=== PATIENT | male | born 1990 | race Two or more races ===

== ENCOUNTER 2017-01-04 08:01 | Emergency (ER) | payer MEDICAID ==
[2017-01-04 08:04] VITALS: BMI 24.4
[2017-01-04 08:06] VITALS: BP 134/74; PULSE 94; RESP 18; TEMP 97.6; O2SAT 99
--- NOTE | 2017-01-04 08:18 | ED PDOC ---
HPI: Eye Injury/Pain Time Seen by Provider: 01/04/17 08:05 Chief Complaint (Nursing): Eye Problem Chief Complaint (Provider): right eye problem History Per: Patient History/Exam Limitations: no limitations Onset/Duration Of Symptoms: Days (x 1) Current Symptoms Are (Timing): Still Present Injury To Eye?: No Wears Contact Lens?: No Associated Symptoms: Itching, Discharge From Eye. denies: Pain, Decreased Vision, FB Sensation Additional Complaint(s): Davin Noguera is a 26 year old male, with no previous medical history, who presents to the ED with complaints of right eye redness associated with itchiness and yellow drainage since yesterday. Patient denies any foreign body sensation, changes in vision or trauma to the eye. PMD: none provided Past Medical History Reviewed: Historical Data, Nursing Documentation, Vital Signs Vital Signs: Last Vital Signs Temp 97.6 F 01/04/17 08:05 Pulse 94 H 01/04/17 08:05 Resp 18 01/04/17 08:05 BP 134/74 01/04/17 08:05 Pulse Ox 99 01/04/17 08:05 - Medical History PMH: No Chronic Diseases - Surgical History Surgical History: No Surg Hx - Family History Family History: States: Unknown Family Hx - Home Medications Home Medications: Ambulatory Orders Medication Instructions Recorded Tobramycin 0.3% [Tobramycin 5 Ml] 1 drop OP TID #1 bottle 01/04/17 Review of Systems ROS Statement: Except As Marked, All Systems Reviewed And Found Negative Eyes: Positive for: Conjunctivae Inflammation, Redness, Other (drainage ). Negative for: Vision Change Physical Exam - Reviewed Nursing Documentation Reviewed: Yes Vital Signs Reviewed: Yes - Physical Exam Appears: Positive for: Well, Non-toxic, No Acute Distress Eye Exam: Positive for: EOMI, PERRL, Conjunctival injection (right eye), Other ( right eye sclera erythematous. no drainage noted ). Negative for: Nystagmus, Periorbital swelling, Periorbital tenderness Neurologic/Psych: Positive for: Alert, Oriented - ECG O2 Sat by Pulse Oximetry: 99 (RA) Pulse Ox Interpretation: Normal Medical Decision Making Medical Decision Making: Initial Impression: right eye irritation Initial Plan: * physical exam * disposition Scribe Attestation: Documented by Saba Couch, acting as a scribe for Sajan King MD. Provider Scribe Attestation: All medical record entries made by the Scribe were at my direction and personally dictated by me. I have reviewed the chart and agree that the record accurately reflects my personal performance of the history, physical exam, medical decision making, and the department course for this patient. I have also personally directed, reviewed, and agree with the discharge instructions and disposition. Disposition - Clinical Impression Clinical Impression: Conjunctivitis - Patient ED Disposition Is Patient to be Admitted: No Doctor Will See Patient In The: Office Counseled Patient/Family Regarding: Studies Performed, Diagnosis, Need For Followup, Rx Given - Disposition Referrals: Zohaib Perez MD [Staff Provider] - Disposition: Routine/Home Disposition Time: 08:16 Condition: FAIR Prescriptions: Tobramycin 0.3% [Tobramycin 5 Ml] 1 drop OP TID #1 bottle Instructions: Conjunctivitis (ED)
== END 2017-01-04 09:15 | disposition home or self-care (01) ==
LOC: H.ER 08:01
DX: H10.9 Unspecified conjunctivitis (principal)

== ENCOUNTER 2017-03-16 06:38 | Emergency (ER) | payer MEDICAID ==
[2017-03-16 06:40] VITALS: BMI 24.4
[2017-03-16 06:55] VITALS: BP 147/79; PULSE 89; RESP 18; TEMP 97.6; O2SAT 100
[2017-03-16] MEDS ORDERED: cefTRIAXone (Rocephin) 250 mg Inj IM ONE (07:35)
--- NOTE | 2017-03-16 07:48 | ED PDOC ---
HPI: Male Pain Time Seen by Provider: 03/16/17 07:04 Chief Complaint (Nursing): Male Genitourinary Chief Complaint (Provider): Penile discharge and discomfort History Per: Patient History/Exam Limitations: no limitations Onset/Duration Of Symptoms: Days Current Symptoms Are (Timing): Still Present Quality Of Discomfort: "Pain" Associated Symptoms: denies: Fever, Chills, Nausea, Vomiting, Diarrhea Additional History Per: Patient Additional Complaint(s): The patient is a 26yo male, presenting to the ED for penile pain with associated purulent, blood tinged discharge present for the past day. Patient reports he has been sexually active with the same partner for the past year but states he is unsure if his partner had sexual contact with other individuals. Patient reports his partner was recently diagnosed with a UTI and yeast infection and after his most recent sexual contact with her, patient reports a itching and burning sensation in his penis followed by the discharge present today. He denies any fever, chills or other symptoms. Patient offers no additional medical complaints. Past Medical History Reviewed: Historical Data, Nursing Documentation, Vital Signs Vital Signs: Last Vital Signs Temp 97.6 F 03/16/17 06:52 Pulse 89 03/16/17 06:52 Resp 18 03/16/17 06:52 BP 147/79 03/16/17 06:52 Pulse Ox 100 03/16/17 06:52 - Medical History PMH: No Chronic Diseases - Surgical History Surgical History: No Surg Hx - Family History Family History: States: Unknown Family Hx - Social History Current smoker - smoking cessation education provided: No Alcohol: Occasional Drugs: Denies - Home Medications Home Medications: Ambulatory Orders Medication Instructions Recorded Tobramycin 0.3% [Tobramycin 5 Ml] 1 drop OP TID #1 bottle 01/04/17 - Allergies Allergies/Adverse Reactions: Allergies Allergy/AdvReac Type Severity Reaction Status Date / Time No Known Allergies Allergy Verified 01/04/17 08:16 Review of Systems ROS Statement: Except As Marked, All Systems Reviewed And Found Negative Constitutional: Negative for: Fever, Chills Genitourinary Male: Positive for: Penile Discharge, Penile Pain Physical Exam - Reviewed Nursing Documentation Reviewed: Yes Vital Signs Reviewed: Yes - Physical Exam Appears: Positive for: Well, Non-toxic, No Acute Distress Head Exam: Positive for: ATRAUMATIC, NORMAL INSPECTION, NORMOCEPHALIC Skin: Positive for: Normal Color Eye Exam: Positive for: Normal appearance Neck: Positive for: Normal Respiratory: Negative for: Respiratory Distress Male Genital Exam: Negative for: erythema, lesions Neurologic/Psych: Positive for: Alert, Oriented - ECG O2 Sat by Pulse Oximetry: 100 (RA) Pulse Ox Interpretation: Normal Medical Decision Making Medical Decision Making: Time: 729 Impression: Possible STI Plan: -- Chlamydia/GC RNA, TMA -- Rocephin 250mg IM -- Zithromax 1000mg PO -- Patient advised on the importance of having his partner tested for STI's. Also informed of the need to follow up with PCP and to have bloodwork done in 6- 8 weeks to test for HIV. Patient expressed understanding and is agreeable with plan. Scribe Attestation: Documented by Christine Holloway acting as a scribe for Coleen Peralta MD. Provider Attestation: All medical record entries made by the Scribe were at my direction and personally dictated by me. I have reviewed the chart and agree that the record accurately reflects my personal performance of the history, physical exam, medical decision making, and the department course for this patient. I have also personally directed, reviewed, and agree with the discharge instructions and disposition. Disposition - Clinical Impression Clinical Impression: Urethritis - Patient ED Disposition Is Patient to be Admitted: No Doctor Will See Patient In The: Office Counseled Patient/Family Regarding: Diagnosis, Need For Followup - Disposition Referrals: [facility] [Outside] Disposition: Routine/Home Disposition Time: 08:34 Condition: STABLE Instructions: Safe Sex (ED), Sexually Transmitted Diseases (ED) Forms: [employer] (Romanian) - POA Present On Arrival: None
[2017-03-16] MEDS ORDERED: cefTRIAXone (Rocephin) 250 mg Inj ONE (08:11)
== END 2017-03-16 08:51 | disposition home or self-care (01) ==
LOC: H.ER 06:38
DX: N34.2 Other urethritis (principal)

== ENCOUNTER 2017-09-02 18:38 | Emergency (ER) | payer MEDICAID ==
[2017-09-02 18:39] VITALS: BMI 24.4
[2017-09-02 18:56] VITALS: BP 122/56; PULSE 92; RESP 16; TEMP 97.8; O2SAT 98
--- NOTE | 2017-09-02 19:46 | ED PDOC ---
HPI: CCC, URI, Sore Throat Time Seen by Provider: 09/02/17 18:48 Chief Complaint (Nursing): ENT Problem History Per: Patient History/Exam Limitations: no limitations Current Symptoms Are (Timing): Still Present Location Of Pain: Throat Sick Contacts (Context): None Associated Symptoms: Sore Throat, Cough. denies: Fever, Chills, Sputum, Neck Pain, Sinus Drainage, Myalgias, Nasal Congestion, Nausea, Vomiting, Diarrhea Severity: Moderate Additional History Per: Patient Additional Complaint(s): 27 y/o male complaining of one week of productive cough and intermittent sore throat. No fever, chills or other complaint. Denies sick contacts. Past Medical History Vital Signs: Last Vital Signs Temp 97.8 F 09/02/17 18:54 Pulse 92 H 09/02/17 18:54 Resp 16 09/02/17 18:54 BP 122/56 L 09/02/17 18:54 Pulse Ox 98 09/02/17 19:47 - Medical History PMH: No Chronic Diseases - Family History Family History: States: Unknown Family Hx - Social History Current smoker - smoking cessation education provided: No - Home Medications Home Medications: Ambulatory Orders Medication Instructions Recorded Tobramycin 0.3% [Tobramycin 5 Ml] 1 drop OP TID #1 bottle 01/04/17 Guaifen/Phenyleph/Acetaminophn 1 tab PO BID #14 tab 09/02/17 [Mucinex Fast-Max Cold & Sinus 325 mg-200 mg-5] predniSONE [predniSONE Tab] 20 mg PO DAILY #12 tab 09/02/17 Azithromycin 250 mg PO DAILY #6 tab 09/05/17 - Allergies Allergies/Adverse Reactions: Allergies Allergy/AdvReac Type Severity Reaction Status Date / Time Penicillins Allergy RASH Verified 09/02/17 18:57 Review of Systems Constitutional: Negative for: Fever, Chills ENT: Positive for: Throat Pain. Negative for: Ear Pain, Nose Congestion Respiratory: Positive for: Cough. Negative for: Shortness of Breath Gastrointestinal: Negative for: Nausea, Vomiting Skin: Negative for: Rash Physical Exam - Reviewed Nursing Documentation Reviewed: Yes Vital Signs Reviewed: Yes - Physical Exam Appears: Positive for: Well, Non-toxic Head Exam: Positive for: ATRAUMATIC Skin: Positive for: Normal Color, Warm, Dry ENT: Positive for: Normal ENT Inspection Neck: Positive for: Normal, Supple Cardiovascular/Chest: Positive for: Regular Rate, Rhythm. Negative for: Gallop , Murmur, Friction Rub Respiratory: Positive for: Normal Breath Sounds. Negative for: Accessory Muscle Use, Crackles, Rales, Rhonchi, Stridor, Wheezing, Respiratory Distress Back: Positive for: Normal Inspection Extremity: Positive for: Normal ROM Neurologic/Psych: Positive for: Alert, Oriented - ECG O2 Sat by Pulse Oximetry: 98 Medical Decision Making Medical Decision Making: Time: 19:35 Initial impression: URI Initial plan: patient afebrile. He was given prescriptions for Prednisone and Mucinex to take at home, as well as a note for work. Rx for Z-pack given, but encouraged the patient to hold for 2-3 days to see if his symptoms improved. Verbalized understanding. ~ Scribe Attestation: Documented by~Carol Payne, acting as a scribe for JOSHUA Luther. Provider Scribe Attestation: All medical record entries made by the Scribe were at my direction and personally dictated by me. I have reviewed the chart and agree that the record accurately reflects my personal performance of the history, physical exam, medical decision making, and the department course for this patient. I have also personally directed, reviewed, and agree with the discharge instructions and disposition. Disposition - Clinical Impression Clinical Impression: Viral illness - Patient ED Disposition Is Patient to be Admitted: No Doctor Will See Patient In The: Office Counseled Patient/Family Regarding: Diagnosis, Need For Followup, Rx Given - Disposition Disposition: Routine/Home Disposition Time: 19:44 Condition: GOOD Prescriptions: Azithromycin 250 mg PO DAILY #6 tab Guaifen/Phenyleph/Acetaminophn [Mucinex Fast-Max Cold & Sinus 325 mg-200 mg-5] 1 tab PO BID #14 tab predniSONE [predniSONE Tab] 20 mg PO DAILY #12 tab Instructions: Viral Syndrome (ED) Forms: [facility] (Marshallese), [facility] ED School/Work Excuse
== END 2017-09-02 20:08 | disposition home or self-care (01) ==
LOC: H.ER 18:38
DX: B34.9 Viral infection, unspecified (principal); Z88.0 Allergy status to penicillin

== ENCOUNTER 2017-10-07 19:37 | Emergency (ER) | payer MEDICAID ==
[2017-10-07 19:37] VITALS: BMI 24.4
[2017-10-07 20:24] VITALS: BP 117/74; PULSE 76; RESP 17; TEMP 98.5; O2SAT 99
[2017-10-07] MEDS ORDERED: cefTRIAXone (Rocephin) 250 mg Inj IM ONE (21:07)
--- NOTE | 2017-10-07 21:10 | ED PDOC ---
HPI: Male Pain Time Seen by Provider: 10/07/17 20:46 Chief Complaint (Nursing): Male Genitourinary Chief Complaint (Provider): dysuria History Per: Patient History/Exam Limitations: no limitations Onset/Duration Of Symptoms: Days (3) Current Symptoms Are (Timing): Still Present Quality Of Discomfort: Burning Additional Complaint(s): 27 y/o male presents with dysuria x 3 days. Associated penile discharge. Patient states he has been with his girlfriend for one year but lately they have been "off and on" and is unsure if she could have been with anyone else. Denies fever, nausea/vomiting, chest pain, shortness of breath, abdominal pain, changes in bowel movements, testicular pain/swelling. Past Medical History Reviewed: Historical Data, Nursing Documentation, Vital Signs Vital Signs: Last Vital Signs Temp 98.5 F 10/07/17 20:21 Pulse 76 10/07/17 20:21 Resp 17 10/07/17 20:21 BP 117/74 10/07/17 20:21 Pulse Ox 99 10/07/17 20:21 - Medical History PMH: No Chronic Diseases - Surgical History Surgical History: No Surg Hx - Family History Family History: States: Unknown Family Hx - Home Medications Home Medications: Ambulatory Orders Medication Instructions Recorded Tobramycin 0.3% [Tobramycin 5 Ml] 1 drop OP TID #1 bottle 01/04/17 Guaifen/Phenyleph/Acetaminophn 1 tab PO BID #14 tab 09/02/17 [Mucinex Fast-Max Cold & Sinus 325 mg-200 mg-5] predniSONE [predniSONE Tab] 20 mg PO DAILY #12 tab 09/02/17 Azithromycin 250 mg PO DAILY #6 tab 09/05/17 - Allergies Allergies/Adverse Reactions: Allergies Allergy/AdvReac Type Severity Reaction Status Date / Time No Known Allergies Allergy Verified 10/07/17 20:24 Review of Systems ROS Statement: Except As Marked, All Systems Reviewed And Found Negative Genitourinary Male: Positive for: Dysuria, Penile Discharge Physical Exam - Reviewed Nursing Documentation Reviewed: Yes Vital Signs Reviewed: Yes - Physical Exam Appears: Positive for: Well, Non-toxic, No Acute Distress Head Exam: Positive for: ATRAUMATIC, NORMAL INSPECTION, NORMOCEPHALIC Skin: Positive for: Normal Color Cardiovascular/Chest: Positive for: Regular Rate, Rhythm Respiratory: Positive for: Normal Breath Sounds Gastrointestinal/Abdominal: Positive for: Normal Exam Male Genital Exam: Positive for: normal genitalia, other (exam vp clinical Andrew Dillon RN). Negative for: inguinal tenderness, scrotum tenderness (R), scrotum tenderness (L), testicular tenderness (R), testicular tenderness (L), urethral discharge Extremity: Positive for: Normal ROM Neurologic/Psych: Positive for: Alert, Oriented - ECG O2 Sat by Pulse Oximetry: 99 - Progress ED Course And Treament: u/a, gc/chlamydia Patient agreeable to prophylactic treatment with Rocephin IM, Zithromax PO Patient educated on findings, discharged with instructions on safe sex. Advised if + partner needs to be treated. Follow up PMD 2-3 days. Return precautions given Disposition - Clinical Impression Clinical Impression: Urethritis - Patient ED Disposition Is Patient to be Admitted: No Counseled Patient/Family Regarding: Studies Performed, Diagnosis, Need For Followup - Disposition Disposition: Routine/Home Disposition Time: 21:53 Condition: GOOD Instructions: Nonspecific Urethritis in Men (ED), Sexually Transmitted Diseases (ED)
[2017-10-07] MEDS ORDERED: cefTRIAXone (Rocephin) 250 mg Inj ONE (21:48)
[2017-10-07 22:01] LABS: URINE BILIRUBIN NEGATIVE (NEGATIVE); URINE BLOOD NEGATIVE (NEGATIVE); URINE CLARITY CLEAR (Clear); URINE COLOR YELLOW (YELLOW); URINE GLUCOSE (UA) NEG (Normal); URINE LEUKOCYTE ESTERASE NEG Leu/uL (Negative); URINE NITRATE NEGATIVE (NEGATIVE); URINE PROTEIN NEGATIVE (NEGATIVE); URINE UROBILINOGEN 0.2-1.0 mg/dL (0.2-1.0)
== END 2017-10-08 00:40 | disposition home or self-care (01) ==
LOC: H.ER 19:37
DX: N34.2 Other urethritis (principal)
CPT/HCPCS: 81003; 87086; 87491; 87591; 96372; 99282; J0696

== ENCOUNTER 2018-01-13 06:02 | Emergency (ER) | payer MEDICAID ==
[2018-01-13 06:02] VITALS: BMI 24.4
[2018-01-13 06:24] VITALS: BP 122/71; PULSE 75; RESP 18; TEMP 97.5; O2SAT 99
--- NOTE | 2018-01-13 07:25 | ED PDOC ---
HPI: CCC, URI, Sore Throat Time Seen by Provider: 01/13/18 07:11 Chief Complaint (Nursing): ENT Problem Chief Complaint (Provider): ENT Problem History Per: Patient History/Exam Limitations: no limitations Onset/Duration Of Symptoms: Days (x1) Current Symptoms Are (Timing): Still Present Location Of Pain: Ear(s) (left), Throat Associated Symptoms: denies: Fever, Cough, Nasal Congestion, Nausea, Vomiting Additional Complaint(s): Davin Noguera is a 27 year old male with no past medical history who is presenting to the ED with complaints of difficulty swallowing with associated left sided throat and ear pain, onset yesterday. Patient states that he is able to swallow saliva with difficulty and pain. He denies any fever, cough, congestion, shortness of breath, chest pain, nausea or vomiting. Patient offers no other medical complaints at this time. PMD: [place] Past Medical History Reviewed: Historical Data, Nursing Documentation, Vital Signs Vital Signs: Last Vital Signs Temp 97.5 F L 01/13/18 06:19 Pulse 75 01/13/18 06:19 Resp 18 01/13/18 06:19 BP 122/71 01/13/18 06:19 Pulse Ox 99 01/13/18 07:36 - Medical History PMH: No Chronic Diseases - Surgical History Surgical History: No Surg Hx - Family History Family History: States: Unknown Family Hx - Social History Current smoker - smoking cessation education provided: No Alcohol: Social Drugs: Denies - Home Medications Home Medications: Ambulatory Orders Medication Instructions Recorded Tobramycin 0.3% [Tobramycin 5 Ml] 1 drop OP TID #1 bottle 01/04/17 Guaifen/Phenyleph/Acetaminophn 1 tab PO BID #14 tab 09/02/17 [Mucinex Fast-Max Cold & Sinus 325 mg-200 mg-5] predniSONE [predniSONE Tab] 20 mg PO DAILY #12 tab 09/02/17 Azithromycin 250 mg PO DAILY #6 tab 09/05/17 Azithromycin [Zithromax] 250 mg PO DAILY 5 Days tab 01/13/18 Ibuprofen [Motrin] 600 mg PO TID 7 Days tab 01/13/18 - Allergies Allergies/Adverse Reactions: Allergies Allergy/AdvReac Type Severity Reaction Status Date / Time No Known Allergies Allergy Verified 01/13/18 06:19 Review of Systems ROS Statement: Except As Marked, All Systems Reviewed And Found Negative Constitutional: Negative for: Fever ENT: Positive for: Ear Pain, Throat Pain. Negative for: Nose Discharge, Nose Congestion Cardiovascular: Negative for: Chest Pain Respiratory: Negative for: Cough, Shortness of Breath Gastrointestinal: Negative for: Nausea, Vomiting Skin: Negative for: Rash Physical Exam - Reviewed Nursing Documentation Reviewed: Yes Vital Signs Reviewed: Yes - Physical Exam Appears: Positive for: Non-toxic, No Acute Distress Head Exam: Positive for: ATRAUMATIC, NORMAL INSPECTION, NORMOCEPHALIC Skin: Positive for: Normal Color, Warm, Dry Eye Exam: Positive for: EOMI, Normal appearance, PERRL ENT: Positive for: Normal ENT Inspection, Pharynx Is (non erythematous), TM Is/ Are (clear bilaterally, wax present in both ears). Negative for: Pharyngeal Erythema, Tonsillar Exudate, Tonsillar Swelling Neck: Positive for: Normal, Painless ROM, Supple Cardiovascular/Chest: Positive for: Regular Rate, Rhythm. Negative for: Murmur Respiratory: Positive for: Normal Breath Sounds. Negative for: Respiratory Distress Gastrointestinal/Abdominal: Positive for: Normal Exam, Soft. Negative for: Tenderness Back: Positive for: Normal Inspection. Negative for: L CVA Tenderness, R CVA Tenderness, Vertebral Tenderness Extremity: Positive for: Normal ROM. Negative for: Pedal Edema, Deformity, Swelling Neurologic/Psych: Positive for: Alert, Oriented. Negative for: Motor/Sensory Deficits - ECG O2 Sat by Pulse Oximetry: 99 (RA) Pulse Ox Interpretation: Normal - Progress ED Course And Treament: Stable. Tolerated po. Justs wants a rx for zpak. AAOx3. Medical Decision Making Medical Decision Making: Time: 7:17 Plan: --Motrin 600 mg PO Patient in ED requesting prescription for Z-Ty. Scribe Attestation: Documented by Clarissa Lamas, acting as a scribe for Alden Cornejo MD. Provider Scribe Attestation: All medical record entries made by the Scribe were at my direction and personally dictated by me. I have reviewed the chart and agree that the record accurately reflects my personal performance of the history, physical exam, medical decision making, and the department course for this patient. I have also personally directed, reviewed, and agree with the discharge instructions and disposition. Disposition - Clinical Impression Clinical Impression: Throat pain - Disposition Referrals: [facility] [Outside] - 01/14/18 Disposition Time: 19:05 Condition: STABLE Additional Instructions: Return if not better in 3 days. Prescriptions: Azithromycin [Zithromax] 250 mg PO DAILY 5 Days tab Ibuprofen [Motrin] 600 mg PO TID 7 Days tab Instructions: Sore Throat in Adults Forms: [facility] (Bangladeshi), [facility] ED School/Work Excuse
== END 2018-01-13 07:44 | disposition home or self-care (01) ==
LOC: H.ER 06:02
DX: J02.9 Acute pharyngitis, unspecified (principal)

== ENCOUNTER 2018-08-04 16:30 | Emergency (ER) | payer MEDICAID ==
[2018-08-04 16:31] VITALS: BMI 24.4
[2018-08-04 16:51] VITALS: TEMP 98.2; O2SAT 97
--- NOTE | 2018-08-04 18:25 | ED PDOC ---
HPI: CCC, URI, Sore Throat Time Seen by Provider: 08/04/18 17:30 Chief Complaint (Nursing): ENT Problem Chief Complaint (Provider): ENT Problem History Per: Patient History/Exam Limitations: no limitations Have you had recent travel within the past 21 days to any of the following countries: [place], [place], [place] or [place]?: No Onset/Duration Of Symptoms: Days (x2 days) Sick Contacts (Context): None Associated Symptoms: Fever, Chills, Sore Throat. denies: Cough, Nausea, Vomiting, Diarrhea Additional Complaint(s): Patient is a 28 year old male who complains of sore throat for the last x2 days associated with painful swallowing, tactile fever, and chills. Patient has not taken any medications for his symptoms. He further reports that this morning when he looked in the mirror he saw white patches on his tonsils, prompting ED evaluation. He denies any sick contacts or travel. Otherwise: (-) cough (-) c hest pain, (-) dyspnea, (-) nausea, (-) vomiting, (-) diarrhea, (-) ear pain, (- ) abdominal pain. PMD: in [place], [place] Past Medical History Reviewed: Historical Data, Nursing Documentation, Vital Signs Vital Signs: Last Vital Signs Temp 98.2 F 08/04/18 16:49 Pulse 92 H 08/04/18 16:49 Resp 16 08/04/18 16:49 BP 153/75 H 08/04/18 16:49 Pulse Ox 97 08/04/18 16:49 - Medical History PMH: No Chronic Diseases - Surgical History Surgical History: No Surg Hx - Family History Family History: States: Unknown Family Hx - Home Medications Home Medications: Ambulatory Orders Medication Instructions Recorded Tobramycin 0.3% [Tobramycin 5 Ml] 1 drop OP TID #1 bottle 01/04/17 Guaifen/Phenyleph/Acetaminophn 1 tab PO BID #14 tab 09/02/17 [Mucinex Fast-Max Cold & Sinus 325 mg-200 mg-5] RX: predniSONE [predniSONE Tab] 20 mg PO DAILY #12 tab 09/02/17 RX: Azithromycin 250 mg PO DAILY #6 tab 09/05/17 Azithromycin [Zithromax] 250 mg PO DAILY 5 Days tab 01/13/18 Ibuprofen [Motrin] 600 mg PO TID 7 Days tab 01/13/18 RX: Amoxicillin 875 mg PO BID #14 tab 08/04/18 RX: Naproxen [Naprosyn] 500 mg PO BID PRN #20 tablet 08/04/18 - Allergies Allergies/Adverse Reactions: Allergies Allergy/AdvReac Type Severity Reaction Status Date / Time No Known Allergies Allergy Verified 01/13/18 06:19 Review of Systems ROS Statement: Except As Marked, All Systems Reviewed And Found Negative Constitutional: Positive for: Fever, Chills ENT: Positive for: Throat Pain. Negative for: Ear Pain Cardiovascular: Negative for: Chest Pain Respiratory: Negative for: Cough Gastrointestinal: Negative for: Nausea, Vomiting, Abdominal Pain, Diarrhea Physical Exam - Reviewed Nursing Documentation Reviewed: Yes Vital Signs Reviewed: Yes - Physical Exam Comments: GENERAL APPEARANCE: Patient is awake, alert, oriented x 3, in no acute distress, resting comfortably. SKIN: Warm, dry; (-) cyanosis. ENMT: TM: non bulging, non-erythamatous bilaterally. Mucous membranes moist. Airway patent: (-) stridor. Pharynx: uvula midline; 3+ tonsillar hypertrophy, (+) bilateral erythema and exudates NECK: Supple, FROM (-) tenderness, (-) stiffness, (+) lymphadenopathy. CHEST AND RESPIRATORY: (-) rhonchi, (-) rales, (-) wheezes, (+)breath sounds equal bilaterally. HEART AND CARDIOVASCULAR: (-) irregularity ABDOMEN AND GI: Soft; (-) tenderness. EXTREMITIES: (-) deformity NEURO AND PSYCH: Mental status as above. (-) facial asymmetry. Gait: steady. Speech: clear. - ECG O2 Sat by Pulse Oximetry: 97 (RA) Pulse Ox Interpretation: Normal Medical Decision Making Medical Decision Making: Time: 17:30 impression: tonsillitis plan: --Throat culture --Rapid strep --Amoxicillin 500mg PO --Decadron 10 mg IM --Toradol 30 mg IM 2000 Repeat BP: 120/70 Repeat HR: 79 Rapid Strep: (+) On re-evaluation, patient reports improvement of symptoms. On exam, patient remains AAOx3, in no acute distress. Vitals stable. Lab/Diagnostic results d/w the patient in great detail. Diagnosis of strep pharyngitis/tonsillitis d/w the patient. Based on history, exam and diagnostic results, plan will be for outpatient follow up with ENT. Patient instructed to follow-up with pmd / referral provided / the clinic in 1- 2 days without fail. Advised to take medication as prescribed. Return to the emergency room at any time for any new or worsening symptoms. Patient states he fully agrees with and understands discharge instructions. States that he agrees with the plan and disposition. Verbalized and repeated discharge instructions and plan. I have given the patient opportunity to ask any additional questions. Scribe Attestation: Documented by Oscar Cardona, acting as a scribe for Racheal Hodges Provider Scribe Attestation: All medical record entries made by the Scribe were at my direction and personally dictated by me. I have reviewed the chart and agree that the record accurately reflects my personal performance of the history, physical exam, medical decision making, and the department course for this patient. I have also personally directed, reviewed, and agree with the discharge instructions and disposition. Disposition - Clinical Impression Clinical Impression: Tonsillitis with exudate, Throat pain in adult, Strep pharyngitis - Patient ED Disposition Is Patient to be Admitted: No Counseled Patient/Family Regarding: Studies Performed, Diagnosis, Need For Followup, Rx Given - Disposition Referrals: Eldon Fajardo MD [Staff Provider] - Disposition: Routine/Home Disposition Time: 20:00 Condition: STABLE Additional Instructions: The emergency medical care you received today was directed at your acute symptoms. If you were prescribed any medication, please fill it and take as directed. It may take several days for your symptoms to resolve. Return to the Emergency Department if your symptoms worsen, do not improve, or if you have any other problems. Please contact your doctor in 2 days for re-evaluation and follow up / or call one of the physicians/clinics you have been referred to that are listed on the Patient Visit Information form that is included in your discharge packet. Bring any paperwork you were given at discharge with you along with any medications you are taking to your follow up visit. Our treatment cannot replace ongoing medical care by a primary care provider (PCP) outside of the emergency department. Prescriptions: RX: Amoxicillin 875 mg PO BID #14 tab RX: Naproxen [Naprosyn] 500 mg PO BID PRN #20 tablet PRN Reason: Pain, Moderate (4-7) Instructions: Sore Throat, Adult (DC), Strep Throat (DC) Forms: [employer] (Spanish) Print Language: [place] - POA Present On Arrival: None Results - Lab Results Lab Results: 08/04/18 19:29 Grp A Beta Strep Ag Positive H
[2018-08-04] MEDS ORDERED: Amoxicillin-Clav 500-125 mg Tab PO ONE (19:08)
[2018-08-04] MEDS ORDERED: Dexamethasone 4 mg/1 ml ONE (19:08)
[2018-08-04 20:10] VITALS: BP 120/70; PULSE 79; RESP 18
== END 2018-08-04 20:13 | disposition home or self-care (01) ==
LOC: H.ER 16:30
DX: J03.90 Acute tonsillitis, unspecified (principal); J02.0 Streptococcal pharyngitis
CPT/HCPCS: 87070; 87430; 96372; 99283; J1100; J1885